=== PATIENT | female | born 1990 | race Caucasian/White ===

== ENCOUNTER 2018-03-25 15:29 | Emergency (ER) | payer MEDICAID ==
[~2018-03-25] VITALS: Ht 157.5 cm; Wt 129.3 kg
[2018-03-25 15:35] VITALS: BP_SYST 140
--- NOTE | 2018-03-25 15:42 | NUR ---
Patient to ER bed 4 to gown for evaluation. Side rails up. Report given to Leonid WELLER.
--- NOTE | 2018-03-25 15:42 | NUR ---
Pt c/o epigastric pain with N/V since this AM. Pt describes pain as sharp. Pt was seen here in ER 2 days ago and was dx with kidney stones. Pt continues to c/o pain to right flank, but states abdominal pain is worse. Pt states "I don't want to throw up because I haven't had anything to eat and it would hurt."
--- NOTE | 2018-03-25 15:44 | NUR ---
Dr. Mccullough at bedside.
[2018-03-25] MEDS ORDERED: NACL 0.9% 1,000 ML IV ONE (15:51)
[2018-03-25] MEDS ORDERED: MORPHINE 4 MG/ML INJ. SYRINGE IVP ONE (16:00)
[2018-03-25] MEDS ORDERED: ONDANSETRON HCL 4 MG/2 ML VIAL IVP ONE (16:00)
[2018-03-25] MEDS ORDERED: FAMOTIDINE PF 20 MG/2 ML VIAL IVP ONE (16:00)
--- NOTE | 2018-03-25 17:00 | NUR ---
Pt verbalizes improvement in pain, no needs verbalized at this time.
[2018-03-25 17:14] LABS: BILIRUBIN,URINE NEGATIVE (NEGATIVE); BLOOD, URINE NEGATIVE (NEGATIVE); CLARITY/URINE SL CLOUDY (CLEAR); COLOR,URINE YELLOW (YELLOW); GLUCOSE,URINE NEGATIVE (NEGATIVE); KETONES,URINE NEGATIVE (NEGATIVE); LEUKOCYTE ESTERASE ,URINE 1+ (NEGATIVE); NITRITE, URINE NEGATIVE (NEGATIVE); PROTEIN URINE NEGATIVE (NEGATIVE); UROBILINOGEN,URINE 0.2 (0.2-1.0)
[2018-03-25 17:19] LABS: BACTERIA,URINE MODERATE /HPF (None Seen); RBC,URINE 0-3 /HPF (0-3)
[2018-03-25 17:57] LABS: BASOPHILS # (AUTO) 0.3 K/uL (0.0-0.2); EOSINOPHILS # (AUTO) 0.1 K/uL (0.0-0.4); EOSINOPHILS % (AUTO) 1.3 % (0.0-4.0); LYMPHOCYTES # (AUTO) 2.4 K/uL (1.0-5.5); MEAN CORPUSCULAR HEMOGLOBIN 31 pg (27-31); MEAN CORPUSCULAR HGB CONC 35 % (32-36); MEAN CORPUSCULAR VOLUME 89 fL (79.0-98.0); MONOCYTES # (AUTO) 0.5 K/uL (0.0-1.0)
--- NOTE | 2018-03-25 18:00 | NUR ---
Alert and talking with family. No needs verbalized at this time.
[2018-03-25 18:03] LABS: CALCIUM 9.6 mg/dL (8.4-11.0); CREATININE 0.83 mg/dL (0.55-1.30); POTASSIUM 3.8 mmol/L (3.5-5.1)
[2018-03-25 18:05] LABS: HEMATOCRIT 43.3 % (36-48); HEMOGLOBIN 15.1 g/dL (12.0-16.0); LYMPHOCYTES % (AUTO) 25.1 % (20.5-51.5); MONOCYTES % (AUTO) 5.5 % (1.7-9.3); NEUTROPHILS # (AUTO) 6.1 K/uL (1.8-7.7); NEUTROPHILS % (AUTO) 65.1 % (40.0-70.0); PLATELET COUNT (AUTO) 270 K/uL (130-430); RED BLOOD CELL COUNT(AUTO) 4.88 MIL/uL (4.2-6.2); RED CELL DISTRIBUTION WIDTH 12.4 % (9.0-15.0); WHITE BLOOD COUNT (AUTO) 9.4 K/uL (4.8-10.8)
[2018-03-25 18:07] LABS: ALBUMIN 3.9 g/dL (3.4-4.8); TOTAL BILIRUBIN 0.6 mg/dL (0.0-1.0)
[2018-03-25 19:00] VITALS: BP_SYST 135
--- NOTE | 2018-03-25 19:00 | NUR ---
Patient given written and verbal discharge instructions and verbalizes understanding. ER MD discussed with patient the results and treatment provided. Patient in stable condition. ID arm band removed. IV catheter removed intact and dressing applied, no active bleeding. Rx of Cipro and Flomax given. Patient educated on pain management and to follow up with PMD. Pain Scale 3/10. Opportunity for questions provided and answered. Medication side effect fact sheet provided.
== END 2018-03-25 19:00 | disposition home or self-care (01) ==
LOC: SED 15:29
DX: N39.0 Urinary tract infection, site not specified (principal); E66.9 Obesity, unspecified; Z68.43 Body mass index [BMI] 50.0-59.9, adult; Z87.442 Personal history of urinary calculi; Z90.49 Acquired absence of other specified parts of digestive tract
CPT/HCPCS: 36415; 80053; 81000; 83690; 85025; 87086; 96361; 96374; 96375; 99285; J2270; J2405; J3490; J7030

== ENCOUNTER 2023-06-20 22:42 | Emergency (ER) | payer MEDICAID ==
[~2023-06-20] VITALS: Ht 157.5 cm; Wt 158.8 kg
[2023-06-20 22:43] VITALS: BP_SYST 181; PULSE 98; RESP 24; TEMP 97.9; O2SAT 98
[2023-06-21 00:39] LABS: BASOPHILS % (AUTO) 0.4 % (0.0-2.0); EOSINOPHILS # (AUTO) 0.2 K/uL (0.0-0.4); EOSINOPHILS % (AUTO) 2.1 % (0.0-4.0); HEMATOCRIT 44.5 % (36-48); HEMOGLOBIN 14.2 g/dL (12.0-16.0); LYMPHOCYTES # (AUTO) 3.8 K/uL (1.0-5.5); LYMPHOCYTES % (AUTO) 33.9 % (20.5-51.5); MEAN CORPUSCULAR HEMOGLOBIN 28 pg (27-31); MEAN CORPUSCULAR HGB CONC 32 % (32-36); MEAN CORPUSCULAR VOLUME 89 fL (79.0-98.0); MONOCYTES # (AUTO) 0.6 K/uL (0.0-1.0); MONOCYTES % (AUTO) 5.6 % (1.7-9.3); NEUTROPHILS # (AUTO) 6.5 K/uL (1.8-7.7); PLATELET COUNT (AUTO) 310 K/uL (130-430); RED CELL DISTRIBUTION WIDTH 13.9 % (9.0-15.0); WHITE BLOOD COUNT (AUTO) 11.1 K/uL (4.8-10.8)
[2023-06-21 00:44] LABS: BILIRUBIN,URINE NEGATIVE (NEGATIVE); BLOOD, URINE 3+ (NEGATIVE); COLOR,URINE YELLOW (YELLOW); GLUCOSE,URINE NEGATIVE (NEGATIVE); KETONES,URINE NEGATIVE (NEGATIVE); LEUKOCYTE ESTERASE ,URINE NEGATIVE (NEGATIVE); NITRITE, URINE NEGATIVE (NEGATIVE); PROTEIN URINE TRACE (NEGATIVE); UROBILINOGEN,URINE 0.2 (0.2-1.0)
[2023-06-21] MEDS ORDERED: MEDR10TA72 PO (00:46)
[2023-06-21 00:49] VITALS: BP_SYST 181; PULSE 98; RESP 24; TEMP 97.9; O2SAT 98
[2023-06-21 01:01] LABS: CALCIUM 9.6 mg/dL (8.4-11.0); CREATININE 0.82 mg/dL (0.55-1.30); POTASSIUM 3.6 mmol/L (3.5-5.1)
[2023-06-21 01:02] LABS: CLARITY/URINE SLIGHTLY CLOUDY (CLEAR)
[2023-06-21 01:04] LABS: RBC,URINE >100 /HPF (0-3)
[2023-06-21 01:05] LABS: BACTERIA,URINE None Seen /HPF (None Seen); WBC,URINE 0-3 /HPF (0-3)
[2023-06-21 01:06] LABS: ALBUMIN 3.6 g/dL (3.4-4.8); TOTAL BILIRUBIN 0.3 mg/dL (0.0-1.0); TOTAL PROTEIN, SERUM 7.9 g/dL (6.4-8.3)
== END 2023-06-21 00:49 | disposition home or self-care (01) ==
LOC: SED 22:42
DX: N93.8 Other specified abnormal uterine and vaginal bleeding (principal); I10 Essential (primary) hypertension; Z79.899 Other long term (current) drug therapy
CPT/HCPCS: 36415; 76856-TC; 80053; 81000; 81001; 81015; 85025; 99284

== ENCOUNTER 2023-07-13 12:47 | Emergency (ER) | payer MEDICAID ==
[~2023-07-13] VITALS: Ht 157.5 cm; Wt 158.3 kg
[~2023-07-13 12:47] MED LIST: MEDR10TA72 PO
[2023-07-13 12:55] VITALS: BP_SYST 154; PULSE 85; RESP 19; TEMP 97.6; O2SAT 100
[2023-07-13 14:29] LABS: BILIRUBIN,URINE 1+ (NEGATIVE); BLOOD, URINE 3+ (NEGATIVE); CLARITY/URINE CLOUDY (CLEAR); COLOR,URINE RED (YELLOW); GLUCOSE,URINE NEGATIVE (NEGATIVE); KETONES,URINE TRACE (NEGATIVE); LEUKOCYTE ESTERASE ,URINE TRACE (NEGATIVE); NITRITE, URINE POSITIVE (NEGATIVE); PROTEIN URINE 2+ (NEGATIVE)
[2023-07-13 14:38] LABS: BACTERIA,URINE FEW /HPF (None Seen); MUCUS,URINE 1+ /LPF (None Seen); RBC,URINE >100 /HPF (0-3)
[2023-07-13 15:42] LABS: BASOPHILS % (AUTO) 0.4 % (0.0-2.0); EOSINOPHILS # (AUTO) 0.2 K/uL (0.0-0.4); EOSINOPHILS % (AUTO) 1.7 % (0.0-4.0); HEMATOCRIT 40.8 % (36-48); HEMOGLOBIN 13.5 g/dL (12.0-16.0); LYMPHOCYTES # (AUTO) 2.6 K/uL (1.0-5.5); LYMPHOCYTES % (AUTO) 28.5 % (20.5-51.5); MEAN CORPUSCULAR HEMOGLOBIN 29 pg (27-31); MEAN CORPUSCULAR HGB CONC 33 % (32-36); MEAN CORPUSCULAR VOLUME 88 fL (79.0-98.0); MONOCYTES # (AUTO) 0.5 K/uL (0.0-1.0); MONOCYTES % (AUTO) 5.3 % (1.7-9.3); NEUTROPHILS # (AUTO) 5.9 K/uL (1.8-7.7); NEUTROPHILS % (AUTO) 64.1 % (40.0-70.0); PLATELET COUNT (AUTO) 318 K/uL (130-430); RED BLOOD CELL COUNT(AUTO) 4.62 MIL/uL (4.2-6.2); RED CELL DISTRIBUTION WIDTH 13.8 % (9.0-15.0); WHITE BLOOD COUNT (AUTO) 9.2 K/uL (4.8-10.8)
[2023-07-13 16:12] LABS: CALCIUM 9.4 mg/dL (8.4-11.0); CREATININE 0.79 mg/dL (0.55-1.30); POTASSIUM 3.9 mmol/L (3.5-5.1)
[2023-07-13] MEDS ORDERED: cefTRIAXone 1 GM VIAL ONE (16:15)
[2023-07-13] MEDS ORDERED: TRANEXAMIC ACID 1,000 MG/10 ML VIAL IV ONE (16:15)
[2023-07-13] MEDS ORDERED: KETOROLAC TROMETHAMINE 30 MG VIAL IVP ONE (16:15)
[2023-07-13] MEDS ORDERED: cefTRIAXone 1 GM in D5W 50 ML IV ONE (16:15)
[2023-07-13 16:21] LABS: ALBUMIN 3.6 g/dL (3.4-4.8); TOTAL BILIRUBIN 0.6 mg/dL (0.0-1.0); TOTAL PROTEIN, SERUM 7.6 g/dL (6.4-8.3)
[2023-07-13] MEDS ORDERED: TRANEXAMIC ACID 1,000 MG in NS 50 ML IV ONE (16:30)
[2023-07-13] MEDS ORDERED: KETOROLAC TROMETHAMINE 30 MG VIAL IM ONE (16:45)
[2023-07-13] MEDS ORDERED: cephALEXin 500 MG CAPSULE PO ONE (16:45)
[2023-07-13 16:51] LABS: PROTHROMBIN TIME 10.8 SECS (9.5-12.5)
[2023-07-13] MEDS ORDERED: IBUP-2018 PO (17:02)
[2023-07-13] MEDS ORDERED: CEPH250C PO (17:02)
[2023-07-13] MEDS ORDERED: MEDR10TA72 PO (17:40)
[2023-07-13 17:54] VITALS: BP_SYST 142; PULSE 83; RESP 19; TEMP 97.6; O2SAT 100
== END 2023-07-13 17:55 | disposition home or self-care (01) ==
LOC: SED 12:47
DX: N93.9 Abnormal uterine and vaginal bleeding, unspecified (principal); Z79.899 Other long term (current) drug therapy
CPT/HCPCS: 99285; 96365; 76856; 96375; 80053; 81001; 85025; 85610; 85730; 87086; 36415; 81025; 81000; 81015; J0696; J1885; J3490